=== PATIENT | female | born 1965 | race Caucasian/White ===

== ENCOUNTER → 2023-04-23 | Outpatient (CLI) | payer OTHER | LOC: MC.RAD 08:58 | DX: Z12.31 Encounter for screening mammogram for malignant neoplasm of breast (principal); N64.89 Other specified disorders of breast ==

== ENCOUNTER → 2023-04-29 | Outpatient (CLI) | payer OTHER | LOC: MC.RAD 10:54 | DX: N64.89 Other specified disorders of breast (principal); Z80.3 Family history of malignant neoplasm of breast ==

== ENCOUNTER → 2023-12-29 | Outpatient (CLI) | payer OTHER | LOC: MC.RAD 08:44 | DX: N64.89 Other specified disorders of breast (principal); R92.8 Other abnormal and inconclusive findings on diagnostic imaging of breast ==